=== PATIENT | male | born 1985 | race Hispanic/Latino ===

== ENCOUNTER 2025-05-18 17:24 | Emergency (ER) | payer SELFPAY ==
[2025-05-18 17:25] VITALS: BP 146/107
[2025-05-18 18:03] LABS: COVID-19 Antigen Negative (Negative)
--- NOTE | 2025-05-18 18:11 | ED.GENMED ---
History of Present Illness
General
Chief Complaint: Cold/Flu/URI Symptoms
Source: patient
Exam Limitations: none
Time Seen by Provider: 05/18/25 18:07
Nursing documentation reviewed up to this point in time: agreed with
History of Present Illness
History of Present Illness:
39 yr old male presents to the ED for evaluation. Patient started with subjective fevers headache sore throat yesterday. Mild cough soreness with cough.
Patient is drinking and eating no vomiting.
Phy Exam
General Physical Exam
General Presentation: no apparent distress
General age: appears stated age
General Skin: warm and dry
General Habitus: normal
General Mental: alert
General Hydration: appears well hydrated
ENT Exam
ENT Exam: other (Pharynx is red swollen left tonsil no exudate uvula midline tongue secretions well)
Cardiovascular Exam
Cardiovascular Exam: regular rate/rhythm, no murmur and normal peripheral pulses
Pulmonary Exam
Pulmonary Exam: lungs clear and no respiratory distress
Neurological Exam
Neurological Exam: alert and oriented x3
Musculoskeletal Exam
Musculoskeletal Exam: full ROM
Skin Exam
Skin Exam: normal color and warm/dry
Psychiatric Exam
Psychiatric Exam: normal mood/affect
Course
Orders/Labs/Results
Orders:
Orders
05/18/25 17:31
COVID-19 Antigen Urgent
Source: Nasal Swab
INF RAPID [Influenza A+B Rapid Molecular] Urgent
KIM Source: Nasal Swab
Specimen Description:
05/18/25 18:20
Acetaminophen [Tylenol] 1,000 mg PO NOW STA
05/18/25 18:30
Rapid Strep Group A Urgent
KIM Source: Throat/Pharynx
Specimen Description:
Date Specimen was Collected: 05/18/25
Time Specimen was Collected: 18:26
Vital Signs
Initial and Last Documented VS:
Initial Vital Signs
Temp Pulse Resp BP Pulse Ox
99.0 F 110 18 146/107 97
05/18/25 17:25 05/18/25 17:25 05/18/25 17:25 05/18/25 17:25 05/18/25 17:25
Last Documented Vital Signs
Temp Pulse Resp BP Pulse Ox
99.0 F 110 18 146/107 97
05/18/25 17:25 05/18/25 17:25 05/18/25 17:25 05/18/25 17:25 05/18/25 18:21
MDM/Problems Addressed
Differential Diagnosis Includes:
Not limited to viral syndrome strep throat COVID-influenza
MDM/Problems Addressed:
Symptoms are consistent with viral syndrome. Patient is awake alert no acute distress low-grade temp at 99.0 lungs are clear not hypoxic .
triage note mention that he feels short of breath however he denies to me .he reports very minimal cough only. Main complaint is bodyaches/subjective fevers.
patient's COVID flu and rapid strep are negative.
Patient is well-appearing in no acute distress stable for discharge home with supportive care.
*Pulse Oximetry
SaO2: 97
Oxygen Mode of Delivery: Room air
Patient hypoxic: no
*Critical Care Note
Total Time (30-74mins, 75-104mins- exclusive of procedures): Not Applicable
ED Attending Note
-
Portions of this chart may have been created with voice recognition software.� Occasional wrong word or��sound alike� substitutions may have occurred due to the inherent limitations of voice recognition software.
Discharge Plan
Departure
Patient Disposition: Home (Routine Discharge)
Date of Disposition: 05/18/25
Time of Disposition: 20:03
Patient with high blood pressure during this ER visit?: Yes
Condition: Fair
Covid-19: Not Applicable
Discharge Problem:
Acute viral syndrome
Instructions: Viral Syndrome (DC), BLOOD PRESSURE
Referrals:
NONE,* [Family Provider, Internal Medicine]
Activity Restrictions/Additional Instructions:
Increase fluid intake. Alternate Tylenol and ibuprofen for fever chills body aches. Follow-up with your family doctor in the next 2 days return if any worsening of symptoms.
Interventions
Interventions:
*General Assessment Last Done: 05/18/25 18:37
*Neglect/Abuse Screening Last Done: 05/18/25 18:37
*ED COVID-19 Vaccine History Last Done: 05/18/25 18:37
*ED Influenza Vaccine History Last Done: 05/18/25 18:37
[facility] Risk Assessment Tool Last Done: 05/18/25 18:38
*Risk Screen - Suicide (C-SSRS) Last Done: 05/18/25 17:25
ED- Pulmonary Assessment Last Done: 05/18/25 18:37
Discharge Date and Time
Print Language: MALAY
[2025-05-18] MEDS: TYLENOL 1000 MG PO (18:30)
[2025-05-18 20:05] VITALS: BP 124/85
== END 2025-05-18 20:28 | disposition home or self-care (01) ==
LOC: EMR 17:24
PROVIDERS: Student in an Organized Health Care Education/Training Program; EMERGENCY PHYSICIAN Emergency Medicine
DX: B34.9 Viral infection, unspecified (principal)
CPT/HCPCS: 99283; 87070; 87502; 87811; 87880